=== PATIENT | male | born 1950 | race Caucasian/White ===

== ENCOUNTER 2021-01-24 18:36 | Emergency (ER) | payer MEDICARE ==
[~2021-01-24 18:36] MED LIST: ASPIRIN EC81 MG PO; BIOFLEX TABLET1 EACH PO; FLONASE ALLER15.8 ML; LIPITOR20 MG PO; LOSARTAN-HCTZ1 EAC1 PO; LOSARTAN-HCTZ1 EACH PO; NITROQUIK SL0.4 MG SL; NORCO 5-325 TA1 EACH PO; NORVASC10 MG PO; PERCOCET 5-3251 EACH PO; SAW PALMETTO450 MG PO; TURMERIC 450-51 EACH PO; VITAMIN B-121000 MC1 PO
== END 2021-01-24 19:50 | disposition home or self-care (01) ==
LOC: FER 18:36
DX: S61.012A Laceration without foreign body of left thumb without damage to nail, initial encounter (principal); I10 Essential (primary) hypertension; W26.0XXA Contact with knife, initial encounter; Y92.009 Unspecified place in unspecified non-institutional (private) residence as the place of occurrence of the external cause